=== PATIENT | male | born 1955 | race Caucasian/White ===

== ENCOUNTER 2019-11-06 06:24 | Outpatient (CLI) | payer MEDICARE, OTHER ==
[2019-11-06 18:46] LABS: SARS-CoV-2 MS2 Positive; SARS-CoV-2 N Gene Negative; SARS-CoV-2 S Gene Negative; SARS-CoV-2 orf1ab Negative
== END 2019-11-06 06:25 | disposition home or self-care (01) ==
LOC: LABBT 06:24
PROVIDERS: ATTEND Ophthalmology Retina Specialist
DX: Z01.812 Encounter for preprocedural laboratory examination (principal); Z11.59 Encounter for screening for other viral diseases; H35.372 Puckering of macula, left eye
CPT/HCPCS: 87635; U0003

== ENCOUNTER 2020-07-17 05:45 | Day surgery (SDC) | payer MEDICARE ==
[2020-07-15 12:34] VITALS: BMI 26.1
[~2020-07-17 05:45] MED LIST: Cyclopentolate 1% Opth Drop 2 ML BOT FS SCH
[2020-07-17] MEDS ORDERED: Phenylephrine 2.5% Ophth Soln 5 ML BOT FS SCH (06:00)
[2020-07-17] MEDS ORDERED: Fluorouracil 100 MG, Enoxaparin Sodium 25 MG, EPINEPHrine 0.3 MG in Ophthalmic Irrigati... IRR SCH (06:00)
[2020-07-17] MEDS ORDERED: Cyclopentolate 1% Ophth Drops 15 ML BOT ONE (06:12)
[2020-07-17] MEDS ORDERED: Phenylephrine 2.5% Ophth Soln 5 ML BOT ONE (06:12)
[2020-07-17] MEDS ORDERED: PROPOFOL 20 ML ONE (06:50)
[2020-07-17] MEDS ORDERED: Midazolam HCl 2 mg/2 ml Vial ONE (06:50)
[2020-07-17] MEDS ORDERED: Fentanyl 100 MCG/2 ML VIAL ONE (06:50)
[2020-07-17] MEDS ORDERED: PROPOFOL 200 MG/20 ML VIAL ONE (08:38)
[2020-07-17] MEDS ORDERED: CEFAZOLIN 1 GM VIAL ONE (08:38)
[2020-07-17] MEDS ORDERED: Maxitrol 0.1% Opth Oint 3.5 GM TUBE ONE (08:38)
[2020-07-17] MEDS ORDERED: Lidocaine 4% PF 5 ML AMP ONE (08:38)
[2020-07-17] MEDS ORDERED: Lidocaine 1% PF 5 ML VIAL ONE (08:38)
[2020-07-17] MEDS ORDERED: Bupivacaine PF 0.75% SDV 10 ML ONE (08:38)
[2020-07-17] MEDS ORDERED: Triamcinolone 40 MG/ML VIAL ONE (08:38)
[2020-07-17] MEDS ORDERED: Indocyanine Green 25 MG/10 ML VIAL ONE (08:38)
== END 2020-07-17 08:30 | disposition home or self-care (01) ==
LOC: SDC 05:45
PROVIDERS: ATTEND Ophthalmology Retina Specialist
PROC: 08T43ZZ Resection of Right Vitreous, Percutaneous Approach (ICD-10-PCS; principal; 2020-07-17)
PROC: 08NE3ZZ Release Right Retina, Percutaneous Approach (ICD-10-PCS; 2020-07-17)
DX: H35.371 Puckering of macula, right eye (principal); Z79.82 Long term (current) use of aspirin; Z79.899 Other long term (current) drug therapy
CPT/HCPCS: J0171; J0690; J1650; J2250; J2704; J3010; J3301; J3490; J9190